=== PATIENT | female | born 1995 | race African-American/Black ===

== ENCOUNTER 2021-01-17 11:18 | Emergency (ER) | payer MEDICAID ==
[~2021-01-17] VITALS: Ht 152.4 cm; Wt 68.0 kg
--- NOTE | 2021-01-17 11:36 | NUR ---
PT BIB POV. VOMITING X3 TODAY. HX OF VOMITING EVERYDAY R/T . PT G4, P2, C2. PT CHANGED INTO GOWN AND PROVIDED COMFORT MEASURES.
[2021-01-17] MEDS ORDERED: ONDANSETRON 2MG/ML, 2ML ONE (12:28)
[2021-01-17] MEDS ORDERED: SODIUM CHLORIDE FLUSH 10ML SYR IVF ONE (12:30)
[2021-01-17] MEDS ORDERED: SODIUM CHLORIDE 0.9% 1,000ML IVBOLUS ONE (12:30)
[2021-01-17] MEDS ORDERED: ONDANSETRON 2MG/ML, 2ML IVPush ONE (12:30)
[2021-01-17 12:51] LABS: BASOPHILS % (AUTO) 1 % (0-1); EOSINOPHILS % (AUTO) 0 % (1-7); LYMPHOCYTES % (AUTO) 15 % (22-44); MEAN CORPUSCULAR HEMOGLOBIN 30.1 pg (27.0-34.8); MEAN PLATELET VOLUME 8.4 fL (7.4-10.4); MONOCYTES % (AUTO) 5 % (2-9); NEUTROPHILS % (AUTO) 79 % (42-75); PLATELET COUNT 239 x10^3/uL (130-400); RED BLOOD COUNT 4.18 x10^6/uL (3.82-5.3)
[2021-01-17 13:00] LABS: MICROSCOPIC NOT IND
[2021-01-17 13:01] LABS: ALBUMIN 3.2 g/dL (3.4-5.0); ANION GAP 7 mmol/L (5-15); CALCIUM 8.1 mg/dL (8.5-10.1); CHLORIDE 108 mmol/L (98-107); CREATININE 0.48 mg/dL (0.55-1.02)
--- NOTE | 2021-01-17 14:35 | NUR ---
PT DENIES PAIN. PT RESTING COMFORTABLY. NAUSEA IMPROVED
[2021-01-17 14:56] VITALS: BP 112/73
== END 2021-01-17 15:13 | disposition home or self-care (01) ==
LOC: ED 11:48
DX: O26.892 Other specified pregnancy related conditions, second trimester (principal); R11.2 Nausea with vomiting, unspecified; E86.0 Dehydration; R19.7 Diarrhea, unspecified; Z3A.16 16 weeks gestation of pregnancy
CPT/HCPCS: 36415; 80048; 81003; 82040; 84702; 85025; 96361; 96374; 99283; J2405; J7030